=== PATIENT | male | born 1950 | race African-American/Black ===

== ENCOUNTER 2023-06-17 20:04 | Inpatient (IN) | payer OTHER, MEDICAID ==
[~2023-06-17] VITALS: Ht 195.6 cm; Wt 109.3 kg
[2023-06-17 20:07] VITALS: BP_SYST 110; PULSE 98; RESP 16; TEMP 98.2; O2SAT 100
[2023-06-17 21:25] LABS: MONOCYTES # (AUTO) 0.8 K/uL (0.0-1.0); MONOCYTES % (AUTO) 8.2 % (1.7-9.3); RED CELL DISTRIBUTION WIDTH 22.4 % (9.0-15.0); WHITE BLOOD COUNT (AUTO) 10.1 K/uL (4.8-10.8)
[2023-06-17 21:38] LABS: BASOPHILS # (AUTO) 0.1 K/uL (0.0-0.2); BASOPHILS % (AUTO) 0.6 % (0.0-2.0); EOSINOPHILS % (AUTO) 0.1 % (0.0-4.0); LYMPHOCYTES # (AUTO) 0.6 K/uL (1.0-5.5); LYMPHOCYTES % (AUTO) 5.5 % (20.5-51.5); MEAN CORPUSCULAR HEMOGLOBIN 30 pg (27-31); MEAN CORPUSCULAR HGB CONC 33 % (32-36); MEAN CORPUSCULAR VOLUME 91 fL (79.0-98.0); NEUTROPHILS # (AUTO) 8.7 K/uL (1.8-7.7); NEUTROPHILS % (AUTO) 85.6 % (40.0-70.0); PLATELET COUNT (AUTO) 234 K/uL (130-430)
[2023-06-17 21:46] LABS: ANION GAP 14 (5-15); CALCIUM 9.9 mg/dL (8.4-11.0); CARBON DIOXIDE 24 mmol/L (23-29); CHLORIDE 96 mmol/L (98-107); CREATININE 6.33 mg/dL (0.55-1.30); GLUCOSE 156 mg/dL (74-106); POTASSIUM 5.4 mmol/L (3.5-5.1); SODIUM SERUM 134 mmol/L (136-145); UREA NITROGEN, BLOOD 88 mg/dL (8-21)
[2023-06-17 21:55] LABS: INR 1.3 (0.80-1.20); PROTHROMBIN TIME 13.4 SECS (9.5-12.5)
[2023-06-17 22:01] LABS: RED BLOOD CELL COUNT(AUTO) 1.83 MIL/uL (4.2-6.2)
[2023-06-17 22:03] LABS: HEMATOCRIT 16.7 % (36-54); HEMOGLOBIN 5.5 g/dL (14.0-18.0)
[2023-06-17 22:39] LABS: ALANINE AMINOTRANSFERASE 8 U/L (12-78); ALBUMIN 3.2 g/dL (3.4-4.8); AMYLASE 58 U/L (0-100); ASPARTATE AMINOTRANSFERASE 25 U/L (10-37); BILIRUBIN,DIRECT 0.5 mg/dL (0.0-0.3); LACTATE DEHYDROGENASE 182 U/L (85-227); LIPASE 44 U/L (16-77); TOTAL BILIRUBIN 0.8 mg/dL (0.0-1.0); TOTAL PROTEIN, SERUM 6.8 g/dL (6.4-8.3)
[2023-06-17] MEDS: MORPHINE 4 MG INJ. 4 MG/ML VIAL IVP ONE (23:40)
[2023-06-17] MEDS: PANTOPRAZOLE SODIUM 40 MG/VIAL (PROTONIX) IVP ONE (23:44)
[2023-06-18] MEDS ORDERED: PRO40 PO (00:07)
[2023-06-18] MEDS ORDERED: CALC667T6 PO (00:07)
[2023-06-18] MEDS ORDERED: PANCRELIPASE PO (00:07)
[2023-06-18] MEDS ORDERED: MORP15TA PO (00:07)
[2023-06-18] MEDS ORDERED: LIP40 PO (00:07)
[2023-06-18] MEDS ORDERED: ISOS30TA85 PO (00:07)
[2023-06-18] MEDS ORDERED: HYDR-3917 PO (00:07)
[2023-06-18] MEDS ORDERED: METO25TA3 PO (00:07)
[2023-06-18] MEDS ORDERED: SENN8.6T19 PO (00:07)
[2023-06-18] MEDS ORDERED: DOCU-144 PO (00:07)
[2023-06-18] MEDS ORDERED: ACET325T PO ×2 (00:07)
[2023-06-18] MEDS ORDERED: ASPI-1155 PO (00:07)
[2023-06-18] MEDS ORDERED: ACET-73 PO (00:07)
[2023-06-18] MEDS ORDERED: LORA-258 PO (00:07)
[2023-06-18] MEDS ORDERED: CLOP75TA32 PO (00:07)
[2023-06-18] MEDS ORDERED: DIPH25CA83 PO (00:07)
[2023-06-18] MEDS ORDERED: VITA1CAP PO (00:07)
[2023-06-18] MEDS ORDERED: MEROPENEM 500 MG VIAL IV ONE (01:47)
[2023-06-18] MEDS: MEROPENEM 1 GM IVPB PREMIX 50 ML IV ONE (01:50)
[2023-06-18] MEDS ORDERED: MORPHINE 2 MG/ML INJ. SYRINGE IVP PRN (02:00)
[2023-06-18] MEDS ORDERED: ONDANSETRON HCL 4 MG/2 ML VIAL IVP PRN (02:00)
[2023-06-18] MEDS ORDERED: MORPHINE 4 MG INJ. 4 MG/ML VIAL IVP PRN (02:00)
[2023-06-18] MEDS ORDERED: VANCOMYCIN HCL 1000 MG/VIAL IV ONE (02:09)
[2023-06-18] MEDS: VANCOMYCIN HCL 1,000 MG in NS 250 ML IV ONE (02:35)
[2023-06-18 03:51] VITALS: BP_SYST 137; PULSE 86; RESP 20; TEMP 97.1; O2SAT 96
[2023-06-18 08:00] VITALS: BP_SYST 123; PULSE 75; RESP 17; TEMP 97; O2SAT 93
[2023-06-18] MEDS: METOPROLOL SUCCINATE 25 MG TAB.SR.24H (TOPROL XL) PO SCH (09:00)
[2023-06-18 09:09] LABS: BASOPHILS % (AUTO) 0.5 % (0.0-2.0); EOSINOPHILS % (AUTO) 0.1 % (0.0-4.0); LYMPHOCYTES # (AUTO) 0.6 K/uL (1.0-5.5); MEAN CORPUSCULAR HEMOGLOBIN 30 pg (27-31); MEAN CORPUSCULAR HGB CONC 33 % (32-36); MEAN CORPUSCULAR VOLUME 91 fL (79.0-98.0); MONOCYTES # (AUTO) 0.9 K/uL (0.0-1.0); MONOCYTES % (AUTO) 11.4 % (1.7-9.3); NEUTROPHILS # (AUTO) 6.4 K/uL (1.8-7.7); PLATELET COUNT (AUTO) 200 K/uL (130-430); RED CELL DISTRIBUTION WIDTH 20.6 % (9.0-15.0); WHITE BLOOD COUNT (AUTO) 7.9 K/uL (4.8-10.8)
[2023-06-18 09:13] LABS: HEMOGLOBIN A1C 5.17 % (<5.7)
[2023-06-18 09:17] LABS: HEMATOCRIT 17.3 % (36-54); HEMOGLOBIN 5.7 g/dL (14.0-18.0)
[2023-06-18 09:24] LABS: ANION GAP 10 (5-15); CALCIUM 9.4 mg/dL (8.4-11.0); CARBON DIOXIDE 27 mmol/L (23-29); CHLORIDE 97 mmol/L (98-107); CREATININE 6.59 mg/dL (0.55-1.30); GLUCOSE 118 mg/dL (74-106); SODIUM SERUM 134 mmol/L (136-145); UREA NITROGEN, BLOOD 98 mg/dL (8-21)
[2023-06-18 09:27] LABS: POTASSIUM 5.7 mmol/L (3.5-5.1)
[2023-06-18] MEDS ORDERED: BISA10SU61 RC (11:14)
[2023-06-18 12:40] VITALS: BP_SYST 128; PULSE 78; RESP 18; TEMP 97.4; O2SAT 97
[2023-06-18] MEDS ORDERED: OXYCODONE/ACETAMINOPHEN 5-325 TABLET PO PRN (14:15)
[2023-06-18] MEDS ORDERED: DOCUSATE SODIUM 100 MG CAPSULE PO PRN (14:15)
[2023-06-18 16:02] VITALS: BP_SYST 125; PULSE 74; RESP 17; TEMP 97.2; O2SAT 95
[2023-06-18 20:00] VITALS: O2SAT 100
[2023-06-18 20:20] VITALS: BP_SYST 132; PULSE 86; RESP 18; TEMP 96.8; O2SAT 100
[2023-06-18] MEDS: ATORVASTATIN 20 MG TABLET PO SCH (21:10)
[2023-06-18] MEDS: PANTOPRAZOLE SODIUM 40 MG/VIAL (PROTONIX) IVP SCH (21:13)
[2023-06-18 21:32] LABS: SOURCE/TYPE ,BODY FLUID THORACENTESIS
[2023-06-18 21:33] LABS: BODY FLUID SOURCE/ TYPE PLEURAL
[2023-06-18 21:34] LABS: BF APPEARANCE UNSPUN HAZY (CLEAR); BODY FLUID COLOR LT YELLOW (LT YELLOW); BODY FLUID TOTAL VOLUME 1775 mL; RBC, BODY FLUID 97 /uL; WBC, BODY FLUID 204 /uL
[2023-06-18 21:35] LABS: LYMPHOCYTES, BODY FLUID 25 %; MONOCYTES,BODY FLUID 11 %; NEUTROPHIL, BODY FLUID 64 %
[2023-06-19] VITALS (7 sets, daily range): BP systolic 127–151; PULSE 72–89; RESP 17–18; TEMP 97.4–98.4; O2SAT 92–99
[2023-06-19 06:15] LABS: BASOPHILS % (AUTO) 0.6 % (0.0-2.0); EOSINOPHILS # (AUTO) 0.1 K/uL (0.0-0.4); EOSINOPHILS % (AUTO) 0.8 % (0.0-4.0); HEMOGLOBIN 7.2 g/dL (14.0-18.0); LYMPHOCYTES # (AUTO) 0.6 K/uL (1.0-5.5); LYMPHOCYTES % (AUTO) 8.5 % (20.5-51.5); MEAN CORPUSCULAR HEMOGLOBIN 29 pg (27-31); MEAN CORPUSCULAR HGB CONC 34 % (32-36); MEAN CORPUSCULAR VOLUME 88 fL (79.0-98.0); MONOCYTES # (AUTO) 0.6 K/uL (0.0-1.0); MONOCYTES % (AUTO) 8.6 % (1.7-9.3); NEUTROPHILS # (AUTO) 5.7 K/uL (1.8-7.7); NEUTROPHILS % (AUTO) 81.5 % (40.0-70.0); PLATELET COUNT (AUTO) 184 K/uL (130-430); RED BLOOD CELL COUNT(AUTO) 2.45 MIL/uL (4.2-6.2); RED CELL DISTRIBUTION WIDTH 20.1 % (9.0-15.0)
[2023-06-19 06:22] LABS: TOTAL IRON BIND. CAPACITY 253 ug/dL (250-450)
[2023-06-19 06:44] LABS: ALANINE AMINOTRANSFERASE 8 U/L (12-78); ALBUMIN 2.7 g/dL (3.4-4.8); ANION GAP 9 (5-15); ASPARTATE AMINOTRANSFERASE 25 U/L (10-37); BILIRUBIN,DIRECT 0.5 mg/dL (0.0-0.3); CALCIUM 8.9 mg/dL (8.4-11.0); CARBON DIOXIDE 29 mmol/L (23-29); CHLORIDE 99 mmol/L (98-107); CREATININE 5.72 mg/dL (0.55-1.30); GLUCOSE 87 mg/dL (74-106); POTASSIUM 4.5 mmol/L (3.5-5.1); SODIUM SERUM 137 mmol/L (136-145); TOTAL BILIRUBIN 0.9 mg/dL (0.0-1.0); TOTAL PROTEIN, SERUM 5.8 g/dL (6.4-8.3); UREA NITROGEN, BLOOD 73 mg/dL (8-21)
[2023-06-19 08:51] LABS: HEMATOCRIT 21.4 % (36-54)
[2023-06-19 09:25] LABS: RETICULOCYTE COUNT 6.9 % (0.5-1.5)
[2023-06-19] MEDS: SACUBITRIL/VALSARTAN 24 MG-26 MG 1 TABLET PO ONE (15:57)
[2023-06-19 17:38] LABS: BODY FLUID GLUCOSE 126 mg/dL
[2023-06-19 17:39] LABS: BODY FLUID TOTAL PROTEIN 1.9 g/dL
[2023-06-19] MEDS: SACUBITRIL/VALSARTAN 24 MG-26 MG 1 TABLET PO SCH (20:48)
[2023-06-19] MEDS: OXYCODONE/ACETAMINOPHEN *10*mg/325 mg TABLET PO PRN (23:16)
[2023-06-20 00:26] VITALS: BP_SYST 152; PULSE 91; RESP 18; TEMP 98; O2SAT 97
[2023-06-20 05:28] LABS: BASOPHILS # (AUTO) 0.1 K/uL (0.0-0.2); BASOPHILS % (AUTO) 0.9 % (0.0-2.0); EOSINOPHILS # (AUTO) 0.1 K/uL (0.0-0.4); EOSINOPHILS % (AUTO) 1.7 % (0.0-4.0); HEMOGLOBIN 7.2 g/dL (14.0-18.0); LYMPHOCYTES # (AUTO) 0.6 K/uL (1.0-5.5); LYMPHOCYTES % (AUTO) 8.7 % (20.5-51.5); MEAN CORPUSCULAR HEMOGLOBIN 30 pg (27-31); MEAN CORPUSCULAR HGB CONC 34 % (32-36); MEAN CORPUSCULAR VOLUME 87 fL (79.0-98.0); MONOCYTES # (AUTO) 0.8 K/uL (0.0-1.0); MONOCYTES % (AUTO) 12.9 % (1.7-9.3); NEUTROPHILS # (AUTO) 4.9 K/uL (1.8-7.7); NEUTROPHILS % (AUTO) 75.8 % (40.0-70.0); PLATELET COUNT (AUTO) 176 K/uL (130-430); RED BLOOD CELL COUNT(AUTO) 2.45 MIL/uL (4.2-6.2); RED CELL DISTRIBUTION WIDTH 20.7 % (9.0-15.0); WHITE BLOOD COUNT (AUTO) 6.4 K/uL (4.8-10.8)
[2023-06-20 05:38] LABS: ANION GAP 8 (5-15); CALCIUM 8.3 mg/dL (8.4-11.0); CARBON DIOXIDE 29 mmol/L (23-29); CHLORIDE 99 mmol/L (98-107); CREATININE 5.24 mg/dL (0.55-1.30); GLUCOSE 113 mg/dL (74-106); POTASSIUM 4.5 mmol/L (3.5-5.1); SODIUM SERUM 136 mmol/L (136-145); UREA NITROGEN, BLOOD 60 mg/dL (8-21)
[2023-06-20 06:57] LABS: HEMATOCRIT 21.4 % (36-54)
[2023-06-20 08:00] VITALS: O2SAT 97
[2023-06-20 08:17] VITALS: BP_SYST 152; PULSE 84; RESP 18; TEMP 96.8; O2SAT 99
[2023-06-20] MEDS ORDERED: POTASSIUM CHLORIDE 20 MEQ TABLET.ER PO ONE (09:15)
[2023-06-20 11:20] VITALS: BP_SYST 140; PULSE 80; RESP 16; TEMP 97.1; O2SAT 99
[2023-06-20] MEDS: CLOPIDOGREL BISULFATE 75 MG TABLET PO ONE (11:46)
[2023-06-20 16:24] VITALS: BP_SYST 138; PULSE 80; RESP 16; TEMP 97.1; O2SAT 99
[2023-06-20 20:00] VITALS: BP_SYST 133; PULSE 71; RESP 18; TEMP 97.8; O2SAT 98
[2023-06-21] VITALS: BP_SYST 135; PULSE 68; RESP 18; TEMP 97.2; O2SAT 99
[2023-06-21 05:54] LABS: HEMATOCRIT 24.8 % (36-54); HEMOGLOBIN 8.2 g/dL (14.0-18.0); MEAN CORPUSCULAR HEMOGLOBIN 30 pg (27-31); MEAN CORPUSCULAR HGB CONC 33 % (32-36); MEAN CORPUSCULAR VOLUME 89 fL (79.0-98.0); PLATELET COUNT (AUTO) 183 K/uL (130-430); RED BLOOD CELL COUNT(AUTO) 2.78 MIL/uL (4.2-6.2); RED CELL DISTRIBUTION WIDTH 22.2 % (9.0-15.0); WHITE BLOOD COUNT (AUTO) 7.3 K/uL (4.8-10.8)
[2023-06-21 06:09] LABS: ANION GAP 11 (5-15); CALCIUM 8.8 mg/dL (8.4-11.0); CARBON DIOXIDE 26 mmol/L (23-29); CHLORIDE 98 mmol/L (98-107); CREATININE 6.42 mg/dL (0.55-1.30); GLUCOSE 131 mg/dL (74-106); POTASSIUM 5.6 mmol/L (3.5-5.1); SODIUM SERUM 135 mmol/L (136-145); UREA NITROGEN, BLOOD 78 mg/dL (8-21)
[2023-06-21 07:03] LABS: BASOPHILS % (MANUAL) 0 % (0-2); EOSINOPHILS % (MANUAL) 5 % (0-7); LYMPHOCYTES % (MANUAL) 9 % (20-46); MONOCYTES % (MANUAL) 6 % (0-11); PLATELET ESTIMATE ADEQUATE (ADEQUATE)
[2023-06-21 07:04] LABS: ANISOCYTOSIS 3+; HELMET CELLS FEW; OVALOCYTES FEW
[2023-06-21 07:39] VITALS: BP_SYST 140; PULSE 80; RESP 18; TEMP 96.5; O2SAT 96
[2023-06-21] MEDS: SODIUM POLYSTYRENE SULFONATE 15 GM/60 ML UDBTL PO ONE (08:51)
[2023-06-21] MEDS: CLOPIDOGREL BISULFATE 75 MG TABLET PO SCH (08:52)
[2023-06-21] MEDS: SOD FERRIC GLUC COMPLEX/SUC 125 MG in NS 100 ML IV SCH (09:03)
[2023-06-21 09:47] VITALS: PULSE 80; O2SAT 96
[2023-06-21 12:30] VITALS: BP_SYST 135; PULSE 80; RESP 17; TEMP 98.2; O2SAT 98
[2023-06-21 13:20] LABS: ANION GAP 12 (5-15); CALCIUM 8.9 mg/dL (8.4-11.0); CARBON DIOXIDE 27 mmol/L (23-29); CHLORIDE 98 mmol/L (98-107); CREATININE 6.89 mg/dL (0.55-1.30); GLUCOSE 148 mg/dL (74-106); POTASSIUM 4.9 mmol/L (3.5-5.1); SODIUM SERUM 137 mmol/L (136-145); UREA NITROGEN, BLOOD 82 mg/dL (8-21)
[2023-06-21] MEDS: EPOETIN ALFA-EPBX 10,000 UNITS/ML VIAL SUBCUT SCH (15:25)
[2023-06-21 16:28] VITALS: BP_SYST 123; PULSE 81; RESP 16; TEMP 97.9; O2SAT 97
[2023-06-21 16:34] VITALS: BP_SYST 136; PULSE 79; RESP 18; TEMP 98.1; O2SAT 97
== END 2023-06-21 18:45 | DRG 377 ==
LOC: SED 20:04 → STU 06-18 01:47
PROVIDERS: ADMIT Internal Medicine; ATTEND Internal Medicine
PROC: 30233N1 Transfusion of Nonautologous Red Blood Cells into Peripheral Vein, Percutaneous Approach (ICD-10-PCS; principal; 2023-06-18)
PROC: 0W993ZZ Drainage of Right Pleural Cavity, Percutaneous Approach (ICD-10-PCS; 2023-06-18)
PROC: 5A1D70Z Performance of Urinary Filtration, Intermittent, Less than 6 Hours Per Day (ICD-10-PCS; 2023-06-18)
PROC: 5A1D70Z Performance of Urinary Filtration, Intermittent, Less than 6 Hours Per Day (ICD-10-PCS; 2023-06-19)
PROC: 5A1D70Z Performance of Urinary Filtration, Intermittent, Less than 6 Hours Per Day (ICD-10-PCS; 2023-06-21)
DX: K92.2 Gastrointestinal hemorrhage, unspecified (principal); I50.23 Acute on chronic systolic (congestive) heart failure; J69.0 Pneumonitis due to inhalation of food and vomit; J96.01 Acute respiratory failure with hypoxia; N18.6 End stage renal disease; D62 Acute posthemorrhagic anemia; I13.2 Hypertensive heart and chronic kidney disease with heart failure and with stage 5 chronic kidney disease, or end stage renal disease; J90 Pleural effusion, not elsewhere classified; E87.20 Acidosis, unspecified; E78.5 Hyperlipidemia, unspecified; E11.22 Type 2 diabetes mellitus with diabetic chronic kidney disease; I25.10 Atherosclerotic heart disease of native coronary artery without angina pectoris; Z99.2 Dependence on renal dialysis; Z79.01 Long term (current) use of anticoagulants; N18.9 Chronic kidney disease, unspecified
CPT/HCPCS: 32555; 36415; 71045; 76700; 80048; 80076; 82150; 82947; 83010; 83037; 83540; 83550; 83605; 83615; 83690; 83880; 83986; 84157; 85007; 85025; 85027; 85044; 85610; 85730; 86886; 86900; 86901; 86920; 87040; 87070; 87081; 89051; 89060; 90935; 90937; 93306; 96374; 96375; 97530-GP; 99291; C9113; G0378; J2185; J2270; J2916; J3370; P9021; Q5106